=== PATIENT | male | born 1965 | race Caucasian/White ===

== ENCOUNTER 2025-04-08 11:28 | Outpatient (CLI) | payer BC | END 2025-04-08 11:29 | disposition home or self-care (01) | LOC: BICRAD 11:28 | PROVIDERS: ATTEND Family Medicine | DX: M25.511 Pain in right shoulder (principal); M25.512 Pain in left shoulder; M79.644 Pain in right finger(s); M19.011 Primary osteoarthritis, right shoulder ==